=== PATIENT | female | born 1980 | race Caucasian/White ===

== ENCOUNTER 2016-08-01 23:13 | Observation (INO) ==
[2016-08-02 01:04] LABS: Basophils % 0.3 %; Eosinophils # 0.2 K/mcL (0.0-0.6); Eosinophils % 1.5 %; Hematocrit 40.7 % (35.3-44.9); Immature Granulocytes % 0.6 % (0-4); Lymphocytes # 0.9 K/mcL (0.6-4.6); Mean Corpuscular HGB Conc 34.4 g/dL (31.6-35.5); Mean Corpuscular Hemoglobin 30.7 pg (28.0-33.3); Mean Corpuscular Volume 89.3 fL (83.0-100.0); Mean Platelet Volume 8.8 fL (9.4-12.4); Monocytes # 0.7 K/mcL (0.0-1.3); Monocytes % 6.8 %; Neutrophils # 8.5 K/mcL (1.6-8.9); Platelet Count 228 K/mcL (140-400); Red Blood Count 4.56 M/mcL (3.82-4.97); Segmented Neutrophils % 81.8 %
[2016-08-02] MEDS ORDERED: Ipratropium/Albuterol Neb 3 ML IH ONE (01:06)
[2016-08-02] MEDS ORDERED: methylPREDNISolone 125 MG/2 ML VIAL IVP ONE (01:10)
[2016-08-02 01:17] LABS: BUN/Creatinine Ratio 11 (6-26); Blood Urea Nitrogen 8 mg/dL (7-20); Calcium 9.1 mg/dL (8.6-10.8); Carbon Dioxide 16 mEq/L (19-29); Chloride 110 mEq/L (98-109); Glucose 102 mg/dL (70-99); Osmolality,Calculated 283 (280-300); Potassium 3.1 mEq/L (3.5-4.5); Sodium 137 mEq/L (136-145); eGFR For African Americans > 60 (> 60); eGFR For Non-African Americans > 60 (> 60)
[2016-08-02] MEDS ORDERED: Ketorolac 30 MG/ML VIAL IVP ONE (01:52)
--- NOTE | 2016-08-02 01:52 | Emergency Department Note ---
Disposition Clinical Impression: Acute electrocardiogram changes Chest pain Qualifiers: Chest pain type: unspecified Qualified Code(s): R07.9 - Chest pain, unspecified Disposition: Admitted As Inpatient Condition: Good General Adult HPI - General Chief complaint: ED Shortness of Breath/Dyspnea Stated complaint: DUSTIN Time Seen by Provider: 08/02/16 01:06 Source: patient Limitations: no limitations Nursing Notes Reviewed: Yes Vital Signs Reviewed: Yes - History of Present Illness HPI Narrative: 36 y/o female with 2 days of cough, productive sputum, and wheezing, and chest discomfort when coughing. PMH of DELMY, obesity, HTN, and season allergies. No fever. No cardiac history. Mother had heart issues before the age of 50. Radiation: non-radiation Pain Severity: moderate Pain Scale: 8 Improves with: nothing Worsens with: nothing Associated symptoms: Reports: denies other symptoms Treatments Prior to Arrival: none - Related Data Home Medications Medication Instructions Recorded Confirmed Albuterol Sulfate [Ventolin Hfa] 2 puff IH Q4H PRN 05/11/16 05/11/16 Diazepam [Valium] 10 mg PO TID 05/11/16 05/11/16 Gabapentin [Neurontin] 300 mg PO TID 05/11/16 05/11/16 Ibuprofen [Motrin] 800 mg PO Q8HR 05/11/16 05/11/16 Loratadine [Claritin] 10 mg PO HS 05/11/16 05/11/16 Mometasone/Formoterol [Dulera 200 13 gm IH BID 05/11/16 05/11/16 Mcg/5 Mcg Inhaler] Montelukast [Singulair] 10 mg PO HS 05/11/16 05/11/16 Prochlorperazine Maleate 10 mg PO BID 05/11/16 05/11/16 [Compazine] Tizanidine HCl 4 mg PO Q8H PRN 05/11/16 05/11/16 Topiramate [Topamax] 100 mg PO BID 05/11/16 05/11/16 Venlafaxine HCl [Effexor Xr] 75 mg PO HS 05/11/16 05/11/16 Venlafaxine XR (24 HR) [Effexor Xr] 150 mg PO HS 05/11/16 05/11/16 Previous Rx's Medication Instructions Recorded OxyCODONE/APAP 10/325 [Percocet 1 each PO Q6HR PRN #14 tablet 05/14/16 10/325 MG] Sennosides/Docusate Sodium 1 each PO BID PRN #20 tablet 05/14/16 [Senna-Docusate Sodium Tablet] Promethazine [Phenergan] 25 mg PO Q6HR PRN #20 tablet 06/23/16 Allergies Allergy/AdvReac Type Severity Reaction Status Date / Time cephalexin [From Keflex] Allergy See Verified 02/24/16 18:02 Comments doxycycline Allergy See Verified 02/24/16 18:03 Comments All systems ED: reviewed and negative except as stated. 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 Absent: respiratory distress, accessory muscle use - Cardiovascular Cardiovascular exam: Present: normal rhythm, tachycardia - Abdominal Exam Abdominal exam: Present: soft, Non-Tender - Extremities Exam Extremities exam: Present: normal inspection - Neurological Exam Neurological exam: Present: alert, oriented X3 - Psychiatric Psychiatric exam: Present: normal affect, normal mood - Skin Skin exam: Present: warm, dry Course Course Narrative: EKG shows ST depression in II, III, AVF and V2-V2. 1mm. CXR normal. She does have tachycardia and chest discomfort when coughing. Troponin negative. Will admit due to EKG changes. - Reevaluation(s) Reevaluation #1: Accepted by [facility] [place] Vital Signs Temperature 99.0 F 08/01/16 23:14 Pulse Rate 118 08/01/16 23:14 Respiratory Rate 20 08/01/16 23:14 Blood Pressure 170/99 08/01/16 23:14 O2 Sat by Pulse Oximetry 98 08/01/16 23:14 Temperature 0 F L 08/02/16 02:42 Pulse Rate 96 08/02/16 02:24 Respiratory Rate 18 08/02/16 02:42 Blood Pressure 156/95 08/02/16 02:42 O2 Sat by Pulse Oximetry 97 08/02/16 02:24 Oxygen Delivery Oxygen Delivery Room Air Medical Decision Making - Medical Records Medical records reviewed: Yes I reviewed the patient's medical records. - Lab Data Lab results reviewed: Yes I reviewed the patient's lab results. Result diagrams: 08/02/16 00:56 08/02/16 00:56 Lab Results 08/02/16 08/02/16 08/02/16 Range/Units 00:56 00:56 00:56 WBC 10.3 (4.3-11.1) K/mcL RBC 4.56 (3.82-4.97) M/mcL Hgb 14.0 (11.5-15.4) g/dL Hct 40.7 (35.3-44.9) % MCV 89.3 (83.0-100.0) fL MCH 30.7 (28.0-33.3) pg MCHC 34.4 (31.6-35.5) g/dL RDW 13.0 (11.5-14.5) % Plt Count 228 (140-400) K/mcL MPV 8.8 L (9.4-12.4) fL Immature Gran % 0.6 (0-4) % Seg Neutrophils % 81.8 % Lymphocytes % 9.0 % Monocytes % 6.8 % Eosinophils % 1.5 % Basophils % 0.3 % Neutrophils # 8.5 (1.6-8.9) K/mcL Lymphocytes # 0.9 (0.6-4.6) K/mcL Monocytes # 0.7 (0.0-1.3) K/mcL Eosinophils # 0.2 (0.0-0.6) K/mcL Basophils # 0.0 (0.0-0.2) K/mcL Sodium 137 (136-145) mEq/L Potassium 3.1 L (3.5-4.5) mEq/L Chloride 110 H (98-109) mEq/L Carbon Dioxide 16 L (19-29) mEq/L BUN 8 (7-20) mg/dL Creatinine 0.76 (0.57-1.11) mg/dL Est GFR ( Amer) > 60 (> 60) Est GFR (Non-Af Amer) > 60 (> 60) BUN/Creatinine Ratio 11 (6-26) Glucose 102 H (70-99) mg/dL Calculated Osmolality 283 (280-300) Calcium 9.1 (8.6-10.8) mg/dL Troponin I 0.00 (0-0.03) ng/mL B-Natriuretic Peptide (0-100) pg/mL 08/02/16 Range/Units 00:56 WBC (4.3-11.1) K/mcL RBC (3.82-4.97) M/mcL Hgb (11.5-15.4) g/dL Hct (35.3-44.9) % MCV (83.0-100.0) fL MCH (28.0-33.3) pg MCHC (31.6-35.5) g/dL RDW (11.5-14.5) % Plt Count (140-400) K/mcL MPV (9.4-12.4) fL Immature Gran % (0-4) % Seg Neutrophils % % Lymphocytes % % Monocytes % % Eosinophils % % Basophils % % Neutrophils # (1.6-8.9) K/mcL Lymphocytes # (0.6-4.6) K/mcL Monocytes # (0.0-1.3) K/mcL Eosinophils # (0.0-0.6) K/mcL Basophils # (0.0-0.2) K/mcL Sodium (136-145) mEq/L Potassium (3.5-4.5) mEq/L Chloride (98-109) mEq/L Carbon Dioxide (19-29) mEq/L BUN (7-20) mg/dL Creatinine (0.57-1.11) mg/dL Est GFR ( Amer) (> 60) Est GFR (Non-Af Amer) (> 60) BUN/Creatinine Ratio (6-26) Glucose (70-99) mg/dL Calculated Osmolality (280-300) Calcium (8.6-10.8) mg/dL Troponin I (0-0.03) ng/mL B-Natriuretic Peptide 37 (0-100) pg/mL - Radiology Data Radiology results reviewed: Yes I reviewed the patient's radiology results. - EKG Data EKG #1 EKG attestation: Yes I reviewed and interpreted this EKG. EKG shows normal: sinus rhythm Rate: tachycardia Rhythm: NSR Goode/QRS: normal ST segment depression in: II, III, aVF, v2, v3, v4, v5, v6 When compared to previous EKG there are: changes noted Interpretation: other (ST depression) Attestation Statement - Attestation Attestation: I, Michael Robledo MD, personally performed a history and physical exam of the patient and discussed their management with the resident. I reviewed the resident's note and agree with the documented findings, medical decision making , and plan of care. 36-year-old female with history of asthma presents to the emergency department complaining of productive cough with increasing shortness of breath and wheezing over the past 2 days. She has not noticed any fever. There has been some pleuritic chest pain with coughing and deep breathing. No history of heart problems. No history of hypertension in the past however she states past several times that she has been seen her blood pressure was significantly elevated. On examination patient is a well-developed obese female in no acute distress. She is alert and oriented 3. There is no cyanosis or diaphoresis. Chest is nontender to palpation. Breath sounds are equal bilaterally with scattered bilateral expiratory wheezes. Heart regular rate and rhythm. Abdomen soft and nontender with normal bowel sounds. Labs reviewed and unremarkable. Chest x-ray negative. EKG does show some anterior ST segment depression which was not present on her prior EKG. The hospitalist, Dr. Brady, was consulted and accepted admission of the patient.
[2016-08-02] MEDS ORDERED: Aspirin 325 MG TABLET PO ONE (02:17)
[2016-08-02] MEDS ORDERED: Acetaminophen 325 MG TABLET PO PRN (02:51)
[2016-08-02] MEDS ORDERED: Pantoprazole 40 MG VIAL IVP STA (02:51)
[2016-08-02] MEDS ORDERED: Mag Hydrox/Al Hydrox/Simeth 30 ML UDC PO PRN (02:51)
[2016-08-02] MEDS ORDERED: Nicotine 21 MG PATCH.TD24 TD PRN (02:51)
[2016-08-02] MEDS ORDERED: Naloxone 0.4 MG/ML INJ IVP PRN (02:51)
[2016-08-02] MEDS ORDERED: Nitroglycerin 0.4 MG TAB.SUBL SL PRN (02:51)
[2016-08-02] MEDS ORDERED: Potassium Chloride Elixir 20 MEQ/15 ML UDC PO ONE (02:51)
[2016-08-02] MEDS ORDERED: *HR* Metoprolol 5 MG/5 ML VIAL IVP PRN (02:51)
[2016-08-02] MEDS ORDERED: Ondansetron 4 MG/2 ML VIAL IVP PRN (02:51)
[2016-08-02] MEDS: *HR* Morphine 2 MG/ML SYRINGE IVP PRN ×5 (04:55→22:46)
[2016-08-02] MEDS: Ipratropium/Albuterol Neb 3 ML IH SCH ×4 (05:00→23:35)
[2016-08-02] MEDS: 0.9 % Sodium Chloride 1,000 ML IVC SCH (05:03)
[2016-08-02] MEDS: Levofloxacin 500 MG/100 ML 500 MG/100 ML BAG IVPB SCH (05:04)
[2016-08-02 05:22] LABS: Hemoglobin A1C 5.3 %
[2016-08-02 05:29] LABS: Chol/HDL Ratio 6.9 (0-4.9); Magnesium 1.8 mg/dL (1.6-2.6); Phosphorous 1.9 mg/dL (2.3-4.7)
[2016-08-02 05:43] LABS: Thyroid Stimulating Hormone 1.632 mcIU/mL (0.350-4.840)
[2016-08-02] MEDS: *HR* OxyCODONE Immed Rel 5 MG TABLET PO PRN ×3 (06:29→21:17)
--- NOTE | 2016-08-02 07:50 | Internal Med History&Physical ---
Date of Encounter: 08/02/16 Time of Encounter: 03:00 Assessment and Plan (1) Acute respiratory failure with hypoxia Status: Acute . (2) Acute chest wall pain Status: Acute . (3) Chest pain, rule out acute myocardial infarction Status: Acute . (4) Chest pain with low risk of acute coronary syndrome Status: Acute . (5) Asthmatic bronchitis with acute exacerbation Status: Acute . (6) Bipolar disorder Status: Chronic . Qualifiers: Active/Remission status: in remission of unspecified degree Qualified Code( s): F31.70 - Bipolar disorder, currently in remission, most recent episode unspecified (7) Morbid obesity with BMI of 45.0-49.9, adult Status: Chronic . Internal Medicine - H&P: HPI Chief complaint: Difficulty breathing Admitted From: Emergency Dept Plans for Post Hospital Care: Home History of present illness: Ms. Michele is a 36 year old female with history significant for bipolar disorder/ depression and anxiety, reactive airway disease/asthma, GERD/HH/PUD, allergic rhinitis, DELMY, chronic back pain syndrome, polycystic ovarian disease, type 2 DM , chronic headaches/migraines, DDD lumbosacral spine/sciatica, cholelithiasis, TAO/stage 2 fibrosis, morbid obesity,cannabis dependency, former smoker The patient was visited and interviewed and examined. Patient admitted to [facility] via the emergency department with complaint of difficulty breathing. She presents with a 2 day history of cough productive of sputum, wheezing or chest tightness with pleuritic quality pain with coughing and inspiratory effort pain is rated as a 8/10 in severity when present without modifying factors and nonradiating. She denies any overt fevers chills sweats. Denies sick contacts or travel. Acknowledges seasonal allergens. He is a former smoker but lives in a smoking household. Findings in the ED: Temperature 99 pulse 118 respiration 15-20 BP 170/99. O2 saturation 99% room air. WBC 10.3 hemoglobin 14 platelets 228,000. Differential normal. MPV 8.8. Metabolic panel normal except potassium 3.1 chloride 110. Carbon dioxide 16 glucose 102. BUN was 8 with creatinine 0.76. Troponin 0.00 BNP 37. EKG normal sinus rhythm. Sinus tachycardia. ST depression to 3 aVF. V2 through V6. Chest x-ray demonstrates no evidence of acute or active cardiopulmonary process. Preliminary impression suggests acute asthmatic bronchitis-bronchiolitis in a patient with acknowledges seasonal allergens and known reactive airway disease. Screening studies demonstrate no acute or active cardiac or pulmonary process. Portable chest x-ray. Systemic inflammatory response syndrome criteria are met at presentation. Hypokalemic hyperchloremic metabolic acidemia noted in a patient with professed type 2 diabetes mellitus. Rule out RTA. The patient presents risk for acute clinical decline and morbidity given her presenting chief complaint, findings and comorbid conditions. Workup and treatment will proceed comprehensively. Cumulative laboratory and radiographic data base was reviewed, considered and discussed. Pertinent ancillary medical records including ECW and PCI documentation was reviewed and considered. Given the patient's presenting concerns, past medical history, clinical findings and symptoms, she is admitted at this time will undergo further evaluation and disposition. Orders were written as per the computerized physician order puller system.......................................................................... .................... Consultative opinions will be sought as clinical circumstances justify. Pain management needs will be addressed. Laboratory and radiographic data base will be updated as appropriate. Studies include: Cultures of blood urine and sputum, PT/INR/APTT, Ddimer, cardiac injury panel, BNP, metabolic and hematologic panel, magnesium, phosphorus, ionized calcium, thyroid panel, lipid profile, A1c, C-peptide, CRP, sed rate, respiratory infection profile, respiratory virus panel, blood gas, lactic acid, serologies, etc. Precautions: Aspiration, fall, delirium protocol/surveillance initiated. Telemetry with continuous hemodynamic monitoring and pulse oximetry initiated. Empiric antibody coverage: Intravenous Rocephin and Levaquin pending culture data. Special studies: CT/CTA chest, chest x-ray, telemetry, EKG. Pulmonary toilet: Incentive spirometry, aerosol bronchodilator, mucolytic, antitussive, supplemental oxygen. Corticosteroid therapy. CPAP/BiPAP supplemental oxygen delivery. Aerosol Mucomyst therapy. Fluid and electrolyte repletion efforts will proceed. Careful attention to fluid balance and renal recovery will be emphasized. Avoidance of nephrotoxic exposure and adverse drug drug interaction in the setting of impaired renal function will be monitored closely. Acute coronary syndrome protocol/surveillance initiated. DVT and PUD prophylaxis initiated: PPI therapy, intermittent pneumatic cuffs. Subcutaneous heparin. Early ambulation will be encouraged. Immunization updates recommended. Influenza and pneumococcal vaccinations as part of ongoing preventative healthcare recommendations strongly recommended. Smoking cessation counseling briefly addressed. Patient is a former smoker. Advanced care directive discussion briefly addressed. Patient does not declare any healthcare restrictions at this time. Cardiovascular risk appraisal and cardiovascular risk reduction efforts will be emphasized. Physical /occupational therapy may be consulted to evaluate patient's function capacity and progressive mobility of her circumstances justify. Sliding scale insulin coverage, ADA dietary restraint and schedule an as-needed basis fingerstick glucose assessments were initiated. Nutrition/diabetes education counseling may be considered as circumstances justify. Outpatient medication schedules will be reviewed, confirmed and facilitated as appropriate. Reconciliation of home treatments including adjustments, substitutions and reintroduction into the treatment regimen will address necessary maintenance therapies for chronic pre-existing medical conditions. Plan of care has been reviewed and discussed in detail with the patient. Questions addressed. Hospital course dictated by clinical findings, treatment response and potential consultative interventions. Patient is at risk for further acute clinical decline and morbidity due to presenting chief complaints, findings and comorbid conditions. Condition is serious. Prognosis is cautiously optimistic. CODE STATUS is full. Past Med Surg Social Fam HX - Past Medical History Source: old records reviewed Medical history: arthritis, asthma, COPD (DELMY), GERD, liver disease, other Psychiatric history: anxiety, bipolar, depression, other - Past Surgical History Surgical History: , hysterectomy, other (Tonsillectomy-adenoidectomy. Tubal ligation. Plastic surgery (secondary to dog bite as a child)) - Social History Smoking Status: Former smoker Smokeless Tobacco Status: No Alcohol use: none Drug use: marijuana Occupational status: unemployed Current living situation: With Family Activity Level: Independent ambulation, Mostly sedentary Recent Out of Country Travel Within the Last 8 Weeks: No Exposure or Possible Exposure to Illness During Travel: No - Family History Father Living Status: Still Living Hx Family Cardiac Disorders: Yes Hx Family Endocrine Disorder: Yes (DM) Hx Family Psychosocial Disorders: Yes (bipolar, anxiety, depression) Hx Family Medical Disorders: Yes (HTN) Internal Medicine - H&P: Meds Albuterol Sulfate [Ventolin Hfa] 2 puff IH Q4H PRN 05/11/16 [History] Gabapentin [Neurontin] 300 mg PO TID 05/11/16 [History] Loratadine [Claritin] 10 mg PO HS 05/11/16 [History] Montelukast [Singulair] 10 mg PO HS 05/11/16 [History] Prochlorperazine Maleate [Compazine] 10 mg PO BID 05/11/16 [History] Tizanidine HCl 4 mg PO Q8H PRN 05/11/16 [History] Topiramate [Topamax] 100 mg PO BID 05/11/16 [History] Venlafaxine XR (24 HR) [Effexor Xr] 150 mg PO HS 05/11/16 [History] Promethazine [Phenergan] 25 mg PO Q6HR PRN #20 tablet 06/23/16 [Rx] Albuterol Sulfate [Albuterol Inhaler] 2 puff IH Q4HR PRN 30 Days 08/04/16 [Rx] Amlodipine [Norvasc] 10 mg PO DAILY #60 tablet 08/04/16 [Rx] GuaiFENesin/Dextromethorphan [Robitussin/Dm] 5 ml PO Q6HR PRN 7 Days 08/04/16 [ Rx] Levofloxacin [Levaquin] 500 mg PO DAILY #5 tablet 08/04/16 [Rx] Mometasone/Formoterol [Dulera 200 Mcg/5 Mcg Inhaler] 2 puff IH BID 30 Days 08/04 [Rx] Nicotine Patch [Nicoderm] 21 mg TD DAILY PRN #14 patch.td24 08/04/16 [Rx] Omeprazole [PriLOSEC] 20 mg PO DAILY@0630 #30 capsule. 08/04/16 [Rx] PredniSONE 40 mg PO DAILY #10 tablet 08/04/16 [Rx] Allergies cephalexin [From Keflex] Allergy (Verified 02/24/16 18:02) See Comments "severely ill" doxycycline Allergy (Verified 02/24/16 18:03) See Comments "get very ill" sumatriptan [From Imitrex] Allergy (Verified 08/02/16 07:19) See Comments patient is unsure hydroxyzine Adverse Reaction (Verified 08/02/16 07:19) Vomiting All Systems PM: A 10-system review of systems was performed and is negative for pertinent findings except as documented above in the HPI. - Constitutional Constitutional: as per HPI, malaise, no chills, no fever(s), no night sweats - EENT Eyes: as per HPI, no change in vision, no discharge, no pain, no photophobia Ears: as per HPI, no ear discharge, no ear pain, no tinnitus Nose, mouth and throat: as per HPI, no dysphagia, no nasal discharge, no neck pain, no sore throat - Cardiovascular Cardiovascular ROS IM: as per HPI, other, no chest pain, no diaphoresis, no dyspnea, no lightheadedness, no palpitations, no syncope - Respiratory Respiratory: as per HPI, cough, dyspnea, dyspnea on exertion, wheezing, pain on inspiration, chest congestion, pain with cough, no excessive phlegm production - Gastrointestinal Gastrointestinal: as per HPI, no abdominal pain, no diarrhea, no hematemesis, no hematochezia, no melena, no nausea, no vomiting - Genitourinary Genitourinary: as per HPI, no change in urinary stream, no dysuria, no flank pain, no hematuria - Musculoskeletal Musculoskeletal ROS IM: as per HPI, no numbness, no tingling - Integumentary Integumentary IM: as per HPI, no rash, no unusual bruising - Neurological Neurological ROS: as per HPI, no confusion, no convulsions, no focal weakness, no numbness, no tingling, no tremor(s) - Psychiatric Psychiatric: as per HPI - Endocrine Endocrine IM: as per HPI - Hematologic/Lymphatic Hematologic/Lymphatic: as per HPI, no easy bruising - Allergic/Immunologic Allergic/Immunologic: as per HPI - Constitutional Vitals: Temp Pulse Resp BP Pulse Ox 99.4 F 87 18 143/105 93 L 08/02/16 03:49 08/02/16 03:49 08/02/16 05:01 08/02/16 03:49 08/02/16 05:01 General appearance: Present: cooperative, mild distress, A&O X 3, morbidly obese , answers questions appropriately - Head Head exam: Present: atraumatic, normal inspection, normocephalic - Eye Eye exam: Present: EOMI, PERRL, conjuntiva pink, sclera anicteric Pupils: Present: normal accommodation, PERRL - ENT ENT exam: Present: mucous membranes moist, normal external ear exam, normal oropharynx - Neck Neck exam general surgery: Present: full ROM, supple, trachea midline. Absent: lymphadenopathy, tenderness, nuchal rigidity - Respiratory Respiratory exam: Present: chest wall tenderness, respiratory distress, rhonchi , wheezes. Absent: accessory muscle use, CTAB, rales, tachypnea - Cardiovascular Cardiovascular exam: Present: distant heart sounds, RRR, +S1, +S2. Absent: diastolic murmur, gallop, rubs, systolic murmur - GI/Abdominal GI/Abdominal exam: Present: normal bowel sounds, soft, no peritoneal signs. Absent: distended, tenderness - Extremities Exam Extremities exam: Present: full ROM, warm, radial pulses palpable and symetrical. Absent: calf tenderness, cyanotic, pedal edema - Neurological Exam Neurological exam: Present: alert, CN II-XII intact, oriented X3, no focal deficits. Absent: pronater drift, facial droop, speech deficit - Expanded Neurological Exam Neurological exam expanded: Present: protecting the airway. Absent: ataxia, expressive aphasia, receptive aphasia Patient oriented to: Present: person, place, time Speech: Present: fluid speech Coma Scale Eye Opening: Spontaneous Coma Scale Motor Response: Obeys Commands Coma Scale Verbal Response: Oriented Coma Scale Total: 15 - Psychiatric Psychiatric exam: Present: normal affect, normal mood - Skin Skin exam: Present: dry, intact, warm. Absent: petechiae, rash, urticaria, vesicles Internal Med - H&P Results - Labs CBC & Chem 7: 08/04/16 02:52 08/04/16 02:52 Labs: Cardiac Enzymes 08/02/16 Range/Units 04:12 Troponin I 0.00 (0-0.03) ng/mL - Impressions . Vital Signs Temp Pulse Resp BP Pulse Ox 08/02/16 05:01 18 93 L 08/02/16 03:49 99.4 F 87 16 143/105 97 08/02/16 03:21 98 08/02/16 02:42 0 F L 18 156/95 08/02/16 02:24 96 18 172/112 97 08/02/16 01:13 15 98 08/01/16 23:14 99.0 F 118 20 170/99 98 Intake and Output 08/01/16 08/01/16 08/02/16 15:59 23:59 07:59 Other: Weight 116.12 kg 117.027 kg Blood Glucose* 156 Patient Weight 08/02/16 23:59 Weight 117.027 kg Short CBC 08/02/16 Range/Units 00:56 WBC 10.3 (4.3-11.1) K/mcL Hgb 14.0 (11.5-15.4) g/dL Hct 40.7 (35.3-44.9) % Plt Count 228 (140-400) K/mcL Neutrophils # 8.5 (1.6-8.9) K/mcL BMP 08/02/16 Range/Units 00:56 Sodium 137 (136-145) mEq/L Potassium 3.1 L (3.5-4.5) mEq/L Chloride 110 H (98-109) mEq/L Carbon Dioxide 16 L (19-29) mEq/L BUN 8 (7-20) mg/dL Creatinine 0.76 (0.57-1.11) mg/dL Glucose 102 H (70-99) mg/dL Calcium 9.1 (8.6-10.8) mg/dL Cardiac Enzymes 08/02/16 08/02/16 Range/Units 04:12 00:56 Troponin I 0.00 0.00 (0-0.03) ng/mL Abnormal lab results MPV 8.8 fL (9.4-12.4) L 08/02/16 00:56 Potassium 3.1 mEq/L (3.5-4.5) L 08/02/16 00:56 Chloride 110 mEq/L (98-109) H 08/02/16 00:56 Carbon Dioxide 16 mEq/L (19-29) L 08/02/16 00:56 Glucose 102 mg/dL (70-99) H 08/02/16 00:56 POC Glucose 156 (58-89) H 08/02/16 03:45 Phosphorus 1.9 mg/dL (2.3-4.7) L 08/02/16 04:12 Cholesterol 213 mg/dL (< 200) H 08/02/16 04:12 LDL Cholesterol, Calc 155 mg/dL (0-99) H 08/02/16 04:12 HDL Cholesterol 31 mg/dL (40-59) L 08/02/16 04:12 Cholesterol/HDL Ratio 6.9 (0-4.9) H 08/02/16 04:12 Allergies Allergy/AdvReac Type Severity Reaction Status Date / Time cephalexin [From Keflex] Allergy See Verified 02/24/16 18:02 Comments doxycycline Allergy See Verified 02/24/16 18:03 Comments sumatriptan [From Imitrex] Allergy See Verified 08/02/16 07:19 Comments hydroxyzine AdvReac Vomiting Verified 08/02/16 07:19 Laboratory Results WBC 10.3 K/mcL (4.3-11.1) 08/02/16 00:56 RBC 4.56 M/mcL (3.82-4.97) 08/02/16 00:56 Hgb 14.0 g/dL (11.5-15.4) 08/02/16 00:56 Hct 40.7 % (35.3-44.9) 08/02/16 00:56 MCV 89.3 fL (83.0-100.0) 08/02/16 00:56 MCH 30.7 pg (28.0-33.3) 08/02/16 00:56 MCHC 34.4 g/dL (31.6-35.5) 08/02/16 00:56 RDW 13.0 % (11.5-14.5) 08/02/16 00:56 Plt Count 228 K/mcL (140-400) 08/02/16 00:56 MPV 8.8 fL (9.4-12.4) L 08/02/16 00:56 Immature Gran % 0.6 % (0-4) 08/02/16 00:56 Seg Neutrophils % 81.8 % 08/02/16 00:56 Lymphocytes % 9.0 % 08/02/16 00:56 Monocytes % 6.8 % 08/02/16 00:56 Eosinophils % 1.5 % 08/02/16 00:56 Basophils % 0.3 % 08/02/16 00:56 Neutrophils # 8.5 K/mcL (1.6-8.9) 08/02/16 00:56 Lymphocytes # 0.9 K/mcL (0.6-4.6) 08/02/16 00:56 Monocytes # 0.7 K/mcL (0.0-1.3) 08/02/16 00:56 Eosinophils # 0.2 K/mcL (0.0-0.6) 08/02/16 00:56 Basophils # 0.0 K/mcL (0.0-0.2) 08/02/16 00:56 Sodium 137 mEq/L (136-145) 08/02/16 00:56 Potassium 3.1 mEq/L (3.5-4.5) L 08/02/16 00:56 Chloride 110 mEq/L (98-109) H 08/02/16 00:56 Carbon Dioxide 16 mEq/L (19-29) L 08/02/16 00:56 BUN 8 mg/dL (7-20) 08/02/16 00:56 Creatinine 0.76 mg/dL (0.57-1.11) 08/02/16 00:56 Est GFR ( Amer) > 60 (> 60) 08/02/16 00:56 Est GFR (Non-Af Amer) > 60 (> 60) 08/02/16 00:56 BUN/Creatinine Ratio 11 (6-26) 08/02/16 00:56 Glucose 102 mg/dL (70-99) H 08/02/16 00:56 POC Glucose 156 (58-89) H 08/02/16 03:45 Est Mean Plasma Glucose 105 mg/dl 08/02/16 04:12 Hemoglobin A1c 5.3 % (-5.6) 08/02/16 04:12 Calculated Osmolality 283 (280-300) 08/02/16 00:56 Calcium 9.1 mg/dL (8.6-10.8) 08/02/16 00:56 Phosphorus 1.9 mg/dL (2.3-4.7) L 08/02/16 04:12 Magnesium 1.8 mg/dL (1.6-2.6) 08/02/16 04:12 Troponin I 0.00 ng/mL (0-0.03) 08/02/16 04:12 B-Natriuretic Peptide 37 pg/mL (0-100) 08/02/16 00:56 Triglycerides 135 mg/dL (< 150) 08/02/16 04:12 Cholesterol 213 mg/dL (< 200) H 08/02/16 04:12 LDL Cholesterol, Calc 155 mg/dL (0-99) H 08/02/16 04:12 VLDL Cholesterol, Calc 27 mg/dL (< 31) 08/02/16 04:12 HDL Cholesterol 31 mg/dL (40-59) L 08/02/16 04:12 Cholesterol/HDL Ratio 6.9 (0-4.9) H 08/02/16 04:12 TSH 1.632 mcIU/mL (0.350-4.840) 08/02/16 04:12 Impressions Chest X-Ray 08/02/16 00:43 IMPRESSION: No evidence of acute cardiopulmonary disease. D/ / Adilson Martines MD / Adilson Martines MD Interpreting Provider: Adilson Martines MD
[2016-08-02] MEDS: Aspirin 81 MG TAB.CHEW PO SCH (08:06)
[2016-08-02] MEDS: Topiramate 100 MG TABLET PO SCH ×2 (08:11→21:05)
[2016-08-02] MEDS: diazePAM 10 MG TABLET PO SCH ×3 (08:11→21:06)
[2016-08-02] MEDS: Gabapentin 300 MG CAPSULE PO SCH ×3 (08:11→21:05)
[2016-08-02] MEDS: predniSONE 20 MG TABLET PO SCH (08:11)
[2016-08-02] MEDS: tiZANidine 4 MG TABLET PO PRN ×2 (08:14→15:47)
[2016-08-02] MEDS: *HR* Promethazine 25 MG/ML VIAL IVP PRN ×3 (08:14→21:17)
--- NOTE | 2016-08-02 16:19 | Internal Med Progress Note ---
Date of Encounter: 08/02/16 Time of Encounter: 10:00 - Assessment and plan (1) DVT prophylaxis Current Visit: Yes Status: Acute Assessment and plan: Pt is young and ambulating, heparin sc (2) Acute electrocardiogram changes Current Visit: Yes Status: Acute Assessment and plan: ST depression possibly due to hypokalemia, improved. (3) Acute respiratory failure with hypoxia Current Visit: Yes Status: Acute Assessment and plan: Continue steroid and brochodilator to treat Asthma. (4) Asthmatic bronchitis with acute exacerbation Current Visit: Yes Status: Acute Assessment and plan: Continue steroid and bronchodilator. Closely monitoring. (5) Morbid obesity with BMI of 45.0-49.9, adult Current Visit: Yes Status: Chronic Assessment and plan: Need lifestyle modification. (6) Hypokalemia Current Visit: No Status: Resolved Assessment and plan: Supplement given. - Time Spent With Patient 25 - 35 minutes - Subjective Interval history: Patient is a 36-year-old female admitted for shortness of breath and EKG change. Her past medical history is significant for asthma, COPD. Pt was seen and examined. She is awake, alert, in mild acute respiratory distress. Vitals are stable. Denies chest pain. No nausea, no vomiting. Initial EKG shows V3-V6 ST depression, which is at a hypokalemia setting (K 3.1). Repeated EKG has improved ST depression. CTA negative to PE. Will continue steroid and brochodilator for COPD. - Constitutional Vitals: Temp Pulse Resp BP Pulse Ox 98.4 F 83 16 132/71 94 L 08/02/16 15:41 08/02/16 15:41 08/02/16 15:41 08/02/16 15:41 08/02/16 15:41 General appearance: Present: cooperative, mild distress, A&O X 3, morbidly obese , answers questions appropriately - Head Head exam: Present: atraumatic, normocephalic - Eye Eye exam: Present: PERRL, conjuntiva pink, sclera anicteric Pupils: Present: PERRL - Neck Neck exam general surgery: Present: supple, trachea midline. Absent: lymphadenopathy - Respiratory Respiratory exam: Present: CTAB, wheezes (diffussed wheezes b/l). Absent: accessory muscle use, rales, rhonchi - Cardiovascular Cardiovascular exam: Present: RRR, +S1, +S2. Absent: diastolic murmur, gallop, rubs, systolic murmur - GI/Abdominal GI/Abdominal exam: Present: normal bowel sounds, soft, no peritoneal signs. Absent: distended, tenderness - Extremities Exam Extremities exam: Present: warm, radial pulses palpable and symetrical. Absent : calf tenderness, cyanotic, pedal edema - Neurological Exam Neurological exam: Present: CN II-XII intact, oriented X3, no focal deficits. Absent: pronater drift, facial droop, speech deficit - Skin Skin exam: Present: dry, intact Internal Medicine: Result - Labs CBC & Chem 7: 08/02/16 00:56 08/02/16 00:56 Labs: Cardiac Enzymes 08/02/16 08/02/16 Range/Units 04:12 10:04 Troponin I 0.00 0.00 (0-0.03) ng/mL - Impressions Impressions Chest CTA 08/02/16 13:45 IMPRESSION: No evidence of pulmonary embolism or acute pulmonary abnormality. Probable granulomatous disease D/ / Yusuf Hernandez MD / Yusuf Hernandez MD Interpreting Provider: Yusuf Hernandez MD Consult Discharge Plan - Plan Referrals: Salas Canela [Non-Partnered Physician] - 08/09/16 11:30 am
--- NOTE | 2016-08-02 16:22 | ECHO - Doppler Report ---
Echocardiogram Name: Larissa Michele Date of Study: 08/02/2016 Date: 1980 Ht: 62.0 in Medical Record#: [id number] Age: 36 Wt: 258.0 lb Gender: Female BSA: 2.13 Order #: [id number] Location: [facility] Room #: 3B38 Reading Physician: Be Rosales MD, [facility] Appraisal Coordinator: Linden Klein RN Ordering Physician: Santosh Zelaya MD Primary Physician: Dinh Helton DO Indications: Acute Coronary Syndrome Impressions: Normal left ventricular size and systolic function, LVEF 65-70%. Normal left ventricular diastolic function. Normal right ventricular size and function. No significant valvular dysfunction. No evidence of pulmonary hypertension. Left Ventricular Wall Motion: Rest Echo Findings All wall segments showed normal motion. Findings: Study Quality * Technically adequate exam. ECG Findings * Normal sinus rhythm. Left Ventricle * Normal left ventricular size and systolic function, LVEF 65-70%. * Normal LV wall thickness. * Normal left ventricular diastolic function. Right Ventricle * Normal right ventricular size and function. Left Atrium * Normal left atrial size. Right Atrium * Normal right atrial size. Aorta * Normally sized aortic root. Pericardium * There is no pericardial effusion present. IVC * The IVC is not well evaluated. Aortic Valve * Aortic valve not well visualized. * No aortic stenosis. * No aortic regurgitation. Mitral Valve * Normal mitral valve structure. * No mitral stenosis. * Trace mitral regurgitation. Tricuspid Valve * Normal tricuspid valve structure. * No tricuspid stenosis. * Trace tricuspid regurgitation. * No evidence of pulmonary hypertension. Pulmonic Valve * Pulmonic valve not well visualized. * No pulmonic stenosis. * No pulmonic regurgitation. History Years 20 Packs 4 Family History of CAD Measurements: BP: 126/ 71 2D Normal Values RVIDd: 2.80 cm IVSd: 1.00 cm 0.6 - 1.0 cm LVIDd: 5.20 cm 3.7 - 5.6 cm LVPWd: 1.00 cm 0.6 - 1.1 cm LVIDs: 3.10 cm 1.5 - 3.6 cm LVOT Diam: 2.00 cm LA volume: 64 Mitral Valve Peak E:1.20 m/sec Peak A:1.06 m/sec E/A Ratio:1.1 Tricuspid Valve TV Regurg Peak Grad: 25.00mmHg TV Regurg Peak Don: 2.48m/sec Updated by Be Rosales MD, [facility] on 08/02/2016 4:16:34 PM electronically signed on 08/02/2016 4:17:53 PM with status of Final Wall Motion Campbell: 1=Normal, 2=Hypokinesis, 3=Akinesis, 4=Dyskinesis, 5=Aneurysmal, 6=Hyperkinetic, X=Not Visualized (Blank)=Missing
[2016-08-02] MEDS: *HR* Heparin 5,000 UNIT/ML VIAL SQ SCH (18:02)
--- NOTE | 2016-08-02 20:00 | Electrocardiograph Report ---
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
--- NOTE | 2016-08-02 20:03 | Electrocardiograph Report ---
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
[2016-08-02] MEDS: Venlafaxine XR (24 HR) 150 MG CAP.ER.24H PO SCH (21:05)
[2016-08-02] MEDS: Loratadine 10 MG TABLET PO SCH (21:06)
[2016-08-02] MEDS: Venlafaxine XR (24 HR) 75 MG CAP.ER.24H PO SCH (21:06)
[2016-08-02] MEDS: Albuterol 2.5 MG/3 ML NEBULIZER IH PRN (21:34)
[2016-08-02 21:48] LABS: Bilirubin,Urine Negative (Negative); Blood,Urine Negative (Negative); Clarity,Urine Clear (Clear); Color,Urine Yellow (Yellow); Glucose,Urine (UA) Normal (Normal); Ketones,Urine Negative (Negative); Leukocyte Esterase,Urine Negative (Negative); Nitrite,Urine Negative (Negative); Protein,Urine Negative (Neg-Trace); Specific Gravity,Urine 1.015 (1.010-1.025); Urobilinogen,Urine Normal (Normal)
[2016-08-03] MEDS: Albuterol 2.5 MG/3 ML NEBULIZER IH PRN (01:59)
[2016-08-03] MEDS: *HR* Morphine 2 MG/ML SYRINGE IVP PRN ×3 (02:25→11:06)
[2016-08-03] MEDS: Levofloxacin 500 MG/100 ML 500 MG/100 ML BAG IVPB SCH (03:08)
[2016-08-03] MEDS: 0.9 % Sodium Chloride 1,000 ML IVC SCH ×2 (03:13→23:48)
[2016-08-03] MEDS: *HR* OxyCODONE Immed Rel 5 MG TABLET PO PRN ×3 (03:18→16:27)
[2016-08-03] MEDS: *HR* Promethazine 25 MG/ML VIAL IVP PRN ×3 (03:18→17:55)
[2016-08-03] MEDS: Ipratropium/Albuterol Neb 3 ML IH SCH ×4 (04:16→23:10)
[2016-08-03 05:40] LABS: Basophils % 0.2 %; Eosinophils % 0.2 %; Hematocrit 36.4 % (35.3-44.9); Hemoglobin 12.7 g/dL (11.5-15.4); Immature Granulocytes % 0.5 % (0-4); Lymphocytes # 0.9 K/mcL (0.6-4.6); Lymphocytes % 14.8 %; Mean Corpuscular HGB Conc 34.9 g/dL (31.6-35.5); Mean Corpuscular Hemoglobin 31.3 pg (28.0-33.3); Mean Corpuscular Volume 89.7 fL (83.0-100.0); Mean Platelet Volume 9.2 fL (9.4-12.4); Monocytes # 0.8 K/mcL (0.0-1.3); Monocytes % 13.1 %; Neutrophils # 4.4 K/mcL (1.6-8.9); Platelet Count 203 K/mcL (140-400); Red Blood Count 4.06 M/mcL (3.82-4.97); Red Cell Distribution Width 13.2 % (11.5-14.5); Segmented Neutrophils % 71.2 %
[2016-08-03 05:43] LABS: BUN/Creatinine Ratio 13 (6-26); Blood Urea Nitrogen 10 mg/dL (7-20); Calcium 8.9 mg/dL (8.6-10.8); Carbon Dioxide 18 mEq/L (19-29); Chloride 110 mEq/L (98-109); Glucose 146 mg/dL (70-99); Osmolality,Calculated 290 (280-300); Potassium 3.3 mEq/L (3.5-4.5); Sodium 139 mEq/L (136-145); eGFR For African Americans > 60 (> 60); eGFR For Non-African Americans > 60 (> 60)
[2016-08-03] MEDS: *HR* Heparin 5,000 UNIT/ML VIAL SQ SCH ×2 (06:25→17:53)
[2016-08-03] MEDS: tiZANidine 4 MG TABLET PO PRN ×2 (09:39→21:19)
[2016-08-03] MEDS: Topiramate 100 MG TABLET PO SCH ×2 (09:40→21:20)
[2016-08-03] MEDS: Aspirin 81 MG TAB.CHEW PO SCH (09:40)
[2016-08-03] MEDS: Gabapentin 300 MG CAPSULE PO SCH ×3 (09:40→21:20)
[2016-08-03] MEDS: diazePAM 10 MG TABLET PO SCH ×3 (09:40→21:20)
[2016-08-03] MEDS: predniSONE 20 MG TABLET PO SCH (09:41)
--- NOTE | 2016-08-03 17:58 | Electrocardiograph Report ---
[address] [place], [place] [address] Test Date: 2016-08-03 Pat Name: Larissa Michele Department: 113 Room: 3B38 Gender: F [employer]: : [id number] Requested By: Santosh Zelaya Order Number: [id number] Reading MD: Brunilda Wolfe Measurements Intervals [place] Rate: 105 P: 41 UT: 148 QRS: 32 QRSD: 93 T: 63 QT: 317 QTc: 378 Interpretive Statements SINUS TACHYCARDIA NONSPECIFIC ST-WAVE ABNORMALITY Electronically Signed On 08-03-2016 17:56:30 EST by Brunilda Wolfe
--- NOTE | 2016-08-03 18:00 | Internal Med Progress Note ---
Date of Encounter: 08/03/16 Time of Encounter: 09:00 - Assessment and plan (1) Acute respiratory failure with hypoxia Current Visit: Yes Status: Acute Assessment and plan: Continue steroid and brochodilator to treat Asthma. (2) Acute electrocardiogram changes Current Visit: Yes Status: Acute Assessment and plan: ST depression possibly due to hypokalemia, improved. (3) Asthmatic bronchitis with acute exacerbation Current Visit: Yes Status: Acute Assessment and plan: Continue steroid and bronchodilator. Closely monitoring. (4) Morbid obesity with BMI of 45.0-49.9, adult Current Visit: Yes Status: Chronic Assessment and plan: Need lifestyle modification. (5) Hypokalemia Current Visit: No Status: Resolved Assessment and plan: Supplement given. (6) DVT prophylaxis Current Visit: Yes Status: Acute Assessment and plan: Pt is young and ambulating, heparin sc - Time Spent With Patient 25 - 35 minutes - Subjective Interval history: Patient is a 36-year-old female admitted for shortness of breath and EKG change. Her past medical history is significant for asthma, COPD. Pt was seen and examined. She is awake, alert, still complaining of shortness of breath. Patient is in mild acute respiratory distress. Vitals are stable. Denies chest pain. No nausea, no vomiting. Will continue steroid and brochodilator for COPD. Echo result unremarkable. - Constitutional Vitals: Temp Pulse Resp BP Pulse Ox 97.6 F 107 18 166/82 97 08/03/16 15:21 08/03/16 15:21 08/03/16 16:32 08/03/16 15:21 08/03/16 16:32 General appearance: Present: cooperative, mild distress, A&O X 3, morbidly obese , answers questions appropriately - Head Head exam: Present: atraumatic, normocephalic - Eye Eye exam: Present: PERRL, conjuntiva pink, sclera anicteric Pupils: Present: PERRL - Neck Neck exam general surgery: Present: supple, trachea midline. Absent: lymphadenopathy - Respiratory Respiratory exam: Present: CTAB, wheezes (Diffuse wheezes bilaterally). Absent : accessory muscle use, rales, rhonchi - Cardiovascular Cardiovascular exam: Present: RRR, +S1, +S2. Absent: diastolic murmur, gallop, rubs, systolic murmur - GI/Abdominal GI/Abdominal exam: Present: normal bowel sounds, soft, no peritoneal signs. Absent: distended, tenderness - Extremities Exam Extremities exam: Present: warm, radial pulses palpable and symetrical. Absent : calf tenderness, cyanotic, pedal edema - Neurological Exam Neurological exam: Present: CN II-XII intact, oriented X3, no focal deficits. Absent: pronater drift, facial droop, speech deficit - Skin Skin exam: Present: dry, intact Internal Medicine: Result - Labs CBC & Chem 7: 08/03/16 04:42 08/03/16 04:42 Labs: Short CBC 08/03/16 Range/Units 04:42 WBC 6.2 (4.3-11.1) K/mcL Hgb 12.7 (11.5-15.4) g/dL Hct 36.4 (35.3-44.9) % Plt Count 203 (140-400) K/mcL Neutrophils # 4.4 (1.6-8.9) K/mcL BMP 08/03/16 04:42 Sodium 139 Potassium 3.3 L Chloride 110 H Carbon Dioxide 18 L BUN 10 Creatinine 0.79 Glucose 146 H Calcium 8.9 Urine 08/02/16 Range/Units 21:38 Urine Color Yellow (Yellow) Urine Clarity Clear (Clear) Urine pH 7.0 (5.0-8.0) pH Units Ur Specific [place] 1.015 (1.010-1.025) Urine Protein Negative (Neg-Trace) mg/dL Urine Glucose (UA) Normal (Normal) mg/dL Consult Discharge Plan - Plan Referrals: Salas Canela [Non-Partnered Physician] - 08/09/16 11:30 am
[2016-08-03] MEDS: *HR* OxyCODONE/APAP 5/325 TABLET PO PRN (19:35)
[2016-08-03] MEDS: Venlafaxine XR (24 HR) 150 MG CAP.ER.24H PO SCH (21:20)
[2016-08-03] MEDS: Venlafaxine XR (24 HR) 75 MG CAP.ER.24H PO SCH (21:20)
[2016-08-03] MEDS: Loratadine 10 MG TABLET PO SCH (21:20)
[2016-08-04] MEDS: *HR* Promethazine 25 MG/ML VIAL IVP PRN ×2 (01:47→08:46)
[2016-08-04] MEDS: *HR* OxyCODONE/APAP 5/325 TABLET PO PRN ×3 (01:48→12:33)
[2016-08-04] MEDS: Levofloxacin 500 MG/100 ML 500 MG/100 ML BAG IVPB SCH (02:58)
[2016-08-04 03:56] LABS: Basophils % 0.4 %; Hematocrit 36.7 % (35.3-44.9); Hemoglobin 12.4 g/dL (11.5-15.4); Immature Granulocytes % 0.6 % (0-4); Lymphocytes # 1.1 K/mcL (0.6-4.6); Lymphocytes % 23.7 %; Mean Corpuscular HGB Conc 33.8 g/dL (31.6-35.5); Mean Corpuscular Hemoglobin 30.3 pg (28.0-33.3); Mean Corpuscular Volume 89.7 fL (83.0-100.0); Monocytes # 0.7 K/mcL (0.0-1.3); Monocytes % 15.1 %; Neutrophils # 2.8 K/mcL (1.6-8.9); Platelet Count 225 K/mcL (140-400); Red Blood Count 4.09 M/mcL (3.82-4.97); Red Cell Distribution Width 13.2 % (11.5-14.5); Segmented Neutrophils % 60.2 %
[2016-08-04 04:10] LABS: BUN/Creatinine Ratio 10 (6-26); Blood Urea Nitrogen 8 mg/dL (7-20); Calcium 8.6 mg/dL (8.6-10.8); Carbon Dioxide 19 mEq/L (19-29); Chloride 112 mEq/L (98-109); Glucose 120 mg/dL (70-99); Osmolality,Calculated 290 (280-300); Potassium 3.9 mEq/L (3.5-4.5); Sodium 140 mEq/L (136-145); eGFR For African Americans > 60 (> 60); eGFR For Non-African Americans > 60 (> 60)
[2016-08-04] MEDS: Ipratropium/Albuterol Neb 3 ML IH SCH ×2 (05:27→10:56)
[2016-08-04] MEDS: *HR* Heparin 5,000 UNIT/ML VIAL SQ SCH (06:01)
[2016-08-04] MEDS: diazePAM 10 MG TABLET PO SCH (08:42)
[2016-08-04] MEDS: predniSONE 20 MG TABLET PO SCH (08:42)
[2016-08-04] MEDS: Topiramate 100 MG TABLET PO SCH (08:43)
[2016-08-04] MEDS: Aspirin 81 MG TAB.CHEW PO SCH (08:44)
[2016-08-04] MEDS: Gabapentin 300 MG CAPSULE PO SCH (08:44)
[2016-08-04] MEDS: tiZANidine 4 MG TABLET PO PRN (08:45)
--- NOTE | 2016-08-04 10:43 | Discharge Summary ---
Date of Encounter: 08/04/16 Time of Encounter: 10:00 - Discharge Diagnosis (1) Acute respiratory failure with hypoxia Priority: Primary Status: Acute (2) Acute electrocardiogram changes Priority: Primary Status: Acute (3) Asthmatic bronchitis with acute exacerbation Priority: Primary Status: Acute (4) Morbid obesity with BMI of 45.0-49.9, adult Priority: Secondary Status: Chronic (5) Hypokalemia Priority: Primary Status: Resolved (6) DVT prophylaxis Priority: Secondary Status: Acute - Discharge Medications Prescriptions: GuaiFENesin/Dextromethorphan [Robitussin/Dm] 5 ml PO Q6HR PRN 7 Days PRN Reason: Cough Amlodipine [Norvasc] 10 mg PO DAILY #60 tablet Nicotine Patch [Nicoderm] 21 mg TD DAILY PRN #14 patch.td24 PRN Reason: Nicotine Cravings Omeprazole [PriLOSEC] 20 mg PO DAILY@0630 #30 capsule. PredniSONE 40 mg PO DAILY #10 tablet Home Medications: Albuterol Sulfate [Ventolin Hfa] 2 puff IH Q4H PRN 05/11/16 [History] Gabapentin [Neurontin] 300 mg PO TID 05/11/16 [History] Loratadine [Claritin] 10 mg PO HS 05/11/16 [History] Mometasone/Formoterol [Dulera 200 Mcg/5 Mcg Inhaler] 1 puff IH BID 05/11/16 [ History] Montelukast [Singulair] 10 mg PO HS 05/11/16 [History] Prochlorperazine Maleate [Compazine] 10 mg PO BID 05/11/16 [History] Tizanidine HCl 4 mg PO Q8H PRN 05/11/16 [History] Topiramate [Topamax] 100 mg PO BID 05/11/16 [History] Venlafaxine XR (24 HR) [Effexor Xr] 150 mg PO HS 05/11/16 [History] Promethazine [Phenergan] 25 mg PO Q6HR PRN #20 tablet 06/23/16 [Rx] Amlodipine [Norvasc] 10 mg PO DAILY #60 tablet 08/04/16 [Rx] GuaiFENesin/Dextromethorphan [Robitussin/Dm] 5 ml PO Q6HR PRN 7 Days 08/04/16 [ Rx] Levofloxacin [Levaquin] 500 mg PO DAILY #5 tablet 08/04/16 [Rx] Nicotine Patch [Nicoderm] 21 mg TD DAILY PRN #14 patch.td24 08/04/16 [Rx] Omeprazole [PriLOSEC] 20 mg PO DAILY@0630 #30 capsule. 08/04/16 [Rx] PredniSONE 40 mg PO DAILY #10 tablet 08/04/16 [Rx] Allergies/Adverse Reactions: Allergies cephalexin [From Keflex] Allergy (Verified 02/24/16 18:02) See Comments "severely ill" doxycycline Allergy (Verified 02/24/16 18:03) See Comments "get very ill" sumatriptan [From Imitrex] Allergy (Verified 08/02/16 07:19) See Comments patient is unsure hydroxyzine Adverse Reaction (Verified 08/02/16 07:19) Vomiting Procedures/tests Complete & Pending: Procedures Performed prior 72 hours Category Date Time Status CTA chest [CT angio chest] [CT] Routine Cat Scan 08/02/16 13:45 Completed ECG 12 lead ECG [ECG] Routine Y 08/02/16 04:49 Completed ECG 12 lead ECG [ECG] Routine Y 08/03/16 07:00 Completed EV echocardiogram Routine Y 08/02/16 02:52 Completed - Notes to Outpatient Provider 1. Pt was found HTN, amlodipine 10mg po qd added. 2. She is on tapering down steroid. Date of admission: 08/02/16 02:28 Primary care physician: Dinh Helton DO Consults: 08/02/16 02:52 Consult to Nurse Navigator [CONS] Routine Comment: Consult to Nurse Navigator [CONS] Routine Comment: Discharging clinician: Prabhjot Conner Anticipated date of discharge: 08/04/16 - Patient Status Disposition: Home, Self-Care Condition: Good Functional capacity at discharge: independent ambulation Overall status at discharge: patient is back to baseline - Discharge Instructions Follow Up With: Salas Canela [Non-Partnered Physician] - 08/09/16 11:30 am - Diet and Activity Activity: increase activity as tolerated Diet: low salt diet Interval History: 36-year-old female with history of asthma presents to the emergency department complaining of productive cough with increasing shortness of breath and wheezing over the past 2 days. She has not noticed any fever. There has been some pleuritic chest pain with coughing and deep breathing. No history of heart problems. No history of hypertension in the past however she states past several times that she has been seen her blood pressure was significantly elevated. On examination patient is a well-developed obese female in no acute distress. She is alert and oriented 3. There is no cyanosis or diaphoresis. Chest is nontender to palpation. Breath sounds are equal bilaterally with scattered bilateral expiratory wheezes. Heart regular rate and rhythm. Abdomen soft and nontender with normal bowel sounds. Labs reviewed and unremarkable. Chest x-ray negative. EKG does show some anterior ST segment depression which was not present on her prior EKG. Hospital course: Ms. Michele is a 36 year old female admitted as asthma exacerbation. She also has EKG changes which was considered due to hypokalemia and resolved after potassium supplement. Pt was placed on abx, steroid and brochodilator. She also has HTN which was also treated with anti-HTN medication. Pt c/o chest pain at begining, three sets of troponin was negative, CTA negative, Echo negative. After treatment, her symptoms has improved, SOB relieved. NO chest pain. Still c /o cough which can be controlled with cough med. Will D/C pt home today with po abx and tapering down po prednisone. Will add amlodipine 10mg po qd for her HTN. I saw and examined pt today. Pt is awake, alert, oriented x 3. In no acute respiratory in RA. Mild cough. Lungs are clear, very few wheezing on right side , no rhonchi or crackles. Pt will discharge home and F/U with PCP. Pt has intermittent persist asthma with daily albuterol use and sometimes night attack. She is on IH steroid and LABA IH and singuliar already. Smoking cessation education done and nicotine patch prescribed. Time spent discussing smoking cessation with patient: 3 to 10 minutes - Time Spent with Patient Total time spent providing and/or coordinating discharge services: 40 minutes Greater than 30 minutes - Constitutional Vitals: Temp Pulse Resp BP Pulse Ox 97.4 F L 94 16 154/92 99 08/04/16 06:47 08/04/16 06:47 08/04/16 06:47 08/04/16 06:47 08/04/16 06:47 General appearance: Present: cooperative, A&O X 3, morbidly obese, no acute distress, answers questions appropriately - Head Head exam: Present: atraumatic, normocephalic - Eye Eye exam: Present: PERRL, conjuntiva pink, sclera anicteric Pupils: Present: PERRL - Neck Neck exam general surgery: Present: supple, trachea midline. Absent: lymphadenopathy - Respiratory Respiratory exam: Present: CTAB, wheezes (Very few wheezes on right side.). Absent: accessory muscle use, rales, rhonchi - Cardiovascular Cardiovascular exam: Present: RRR, +S1, +S2. Absent: diastolic murmur, gallop, rubs, systolic murmur - GI/Abdominal GI/Abdominal exam: Present: normal bowel sounds, soft, no peritoneal signs. Absent: distended, tenderness - Extremities Exam Extremities exam: Present: warm, radial pulses palpable and symetrical. Absent : calf tenderness, cyanotic, pedal edema - Neurological Exam Neurological exam: Present: CN II-XII intact, oriented X3, no focal deficits. Absent: pronater drift, facial droop, speech deficit - Skin Skin exam: Present: dry, intact
[2016-08-04 10:56] VITALS: BP 140/82
== END 2016-08-04 12:48 | disposition home or self-care (01) ==
LOC: 3BNU 23:13 → EMEROO 23:13 → SUATTDRO 08-02 02:28 → 3BNU 08-02 02:44
PROVIDERS: ADMIT Internal Medicine; ATTEND Internal Medicine